=== PATIENT | female | born 1970 | race American Indian/Alaskan Native ===

== ENCOUNTER 2019-08-24 12:41 | Emergency (ER) | payer OTHER ==
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
[2019-08-24 13:00] VITALS: BP 119/77
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
== END 2019-08-24 14:32 | disposition home or self-care (01) ==
LOC: ED 12:41
DX: S39.012A Strain of muscle, fascia and tendon of lower back, initial encounter (principal); S46.811A Strain of other muscles, fascia and tendons at shoulder and upper arm level, right arm, initial encounter; S46.812A Strain of other muscles, fascia and tendons at shoulder and upper arm level, left arm, initial encounter; V49.59XA Passenger injured in collision with other motor vehicles in traffic accident, initial encounter; Y93.89 Activity, other specified; Y92.410 Unspecified street and highway as the place of occurrence of the external cause; Y99.8 Other external cause status